=== PATIENT | male | born 1990 | race Two or more races ===

== ENCOUNTER 2025-07-02 08:48 | Emergency (ER) | payer OTHER ==
[~2025-07-02] VITALS: Ht 190.5 cm; Wt 118.8 kg
[~2025-07-02 08:48] MED LIST: KETO10TA2 PO; MIRALAX17 GM PO; TRAMADOL HCL50 MG PO; TYLENOL ARTHRI650 MG PO; ZESTRIL5 MG PO
[2025-07-02] MEDS ORDERED: BUSPIRONE HCL7.5 MG PO (09:34)
[2025-07-02] MEDS ORDERED: CLONAZEPAM0.5 MG PO (09:34)
[2025-07-02] MEDS ORDERED: PROZAC10 MG PO (09:34)
[2025-07-02] MEDS ORDERED: KETOROLAC TROMETHAMINE 30 MG VIAL ONE (10:07)
[2025-07-02] MEDS ORDERED: FAMOTIDINE/PF 20 MG/2 ML VIAL ONE (10:08)
[2025-07-02] MEDS ORDERED: ONDANSETRON HCL 2 MG/ML VIAL ONE (10:08)
[2025-07-02] MEDS ORDERED: KETOROLAC TROMETHAMINE 30 MG VIAL IV ONE (10:15)
[2025-07-02] MEDS ORDERED: ONDANSETRON HCL 2 MG/ML VIAL IV ONE (10:15)
[2025-07-02] MEDS ORDERED: 0.9 % SODIUM CHLORIDE 1,000 ML IV ONE (10:15)
[2025-07-02] MEDS ORDERED: FAMOTIDINE/PF 20 MG/2 ML VIAL IV ONE (10:15)
[2025-07-02 10:59] LABS: BASO % 0.5 % (0.1-1.2); EOS # 0.06 (0.04-0.54); EOS % 1.0 % (0.7-7.0); LYMPH # 1.89 (1.18-3.74); LYMPH % 30.0 % (19.3-53.1); MEAN PLATELET VOLUME 9.90 fl (9.4-12.4); MONO # 0.52 (0.24-0.82); MONO % 8.2 % (4.7-12.5); NEUT # 3.79 (1.56-6.13); NEUT % 60.0 % (34.0-71.1); RED CELL DISTRIBUTION WIDTH 11.6 % (11.6-14.4)
[2025-07-02 11:06] LABS: URINE APPEARANCE Clear; URINE BILIRRUBIN Negative (NEGATIVE); URINE BLOOD Negative; URINE COLOR Yellow; URINE GLUCOSE Negative (NEGATIVE); URINE KETONE Negative (NEGATIVE); URINE LEUKOCYTE Negative; URINE NITRATE Negative; URINE PROTEIN Negative (NEGATIVE); URINE UROBILINOGEN 0.2 E.U./dl
[2025-07-02 11:10] LABS: URINE BACTERIA 7.1 uL (0.0-1933); URINE EPITHELIAL CELLS 3.1 uL (0.0-38.8); URINE RBC 3.2 uL (0.0-20.8)
[2025-07-02 11:17] LABS: URINE CAST 0.00 uL (0.0-1.40); URINE WBC 0.4 uL (0.0-23.2)
[2025-07-02 11:24] LABS: INR 1.04
[2025-07-02 11:30] LABS: ALT/SGPT 55 U/L (12-78); AST/SGOT 26 U/L (15-37); BILIRUBIN TOTAL 0.66 mg/dL (0.3-1.2); BUN CREA RATIO 13 (7.0-25.0); CREATININE SERUM 0.88 mg/dL (0.70-1.30); GFR 99.73; GLOBULINA 5.1 G/DL (2.4-3.5); GLUCOSE FASTING 90 mg/dL (65-100); OSMOLALITY SERUM 275 MOSM/KG (275-295)
[2025-07-02] MEDS ORDERED: PEPCID AC20 MG PO (12:13)
[2025-07-02] MEDS ORDERED: DICY20TA PO (12:13)
== END 2025-07-02 12:18 | disposition home or self-care (01) ==
LOC: ER 08:49
DX: R10.11 Right upper quadrant pain (principal); N20.0 Calculus of kidney